=== PATIENT | female | born 1975 ===

== ENCOUNTER 2016-11-28 22:29 | Emergency (ER) | payer OTHER ==
[2016-11-28 22:35] VITALS: BP 131/79; PULSE 75; RESP 18; TEMP 98.2; O2SAT 100
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
== END 2016-11-28 23:24 | disposition home or self-care (01) ==
LOC: C.ER 22:29 → SUPCPDRO 22:29 → C.ER 23:24
DX: B35.3 Tinea pedis (principal)